=== PATIENT | female | born 1980 | race Caucasian/White ===

== ENCOUNTER 2017-01-24 00:09 | Emergency (ER) | payer OTHER ==
[~2017-01-24 00:09] MED LIST: PRENATAL VITAMI1 TA4 PO; TYL325 PO
[2017-01-24 00:59] LABS: UA SPECIFIC GRAVITY 1.015 (1.005-1.035); microscopic required? YES; urine erythrocyte 3+ (NEGATIVE)
[2017-01-24 01:32] LABS: PLATELET COUNT 240 x10^3mcL (130-400)
[2017-01-24 01:33] LABS: BASOPHIL % 2.5 % (0-2)
[2017-01-24 03:31] VITALS: BP 99/47
== END 2017-01-24 03:31 | disposition home or self-care (01) ==
LOC: ED 00:09
PROVIDERS: Emergency Medicine
DX: O20.0 Threatened abortion (principal); Z3A.11 11 weeks gestation of pregnancy